=== PATIENT | female | born 2000 | race Caucasian/White ===

== ENCOUNTER 2024-04-29 09:49 | Emergency (ER) | payer OTHER, SELFPAY ==
[2024-04-29 10:03] VITALS: BP 134/91; PULSE 120; RESP 18; TEMP 36.6; O2SAT 100
[2024-04-29 10:12] LABS: EDSTREPNEGPOS1 Positive (Negative)
--- NOTE | 2024-04-29 10:16 | ED.GENADULT ---
HPI - General Adult General Chief complaint: Upper Respiratory Infection Stated complaint: Strep Symptoms Time Seen by Provider: 04/29/24 10:16 Source: patient, RN notes reviewed and old records reviewed Mode of arrival: ambulatory Limitations: no limitations History of Present Illness HPI narrative: 23 year old female who presents to [facility] with complaints of sore throat since Sunday night with known exposure to strep throat from her sisters. Patient reports no known fevers, chills or sweats, reports painful swallowing and some clogged feeling in her ears. Patient reports no cough or any respiratory congestion. Patient reports that she has been taking some Tylenol and Ibuprofen for her symptoms. MD complaint: sore throat Onset (ago): day(s) (2) Location: mouth (throat) Severity scale (1-10): 4 Treatments prior to arrival: NSAID and other (Tylenol) Related Data Home Medications ?Medication ?Instructions ?Recorded ?Confirmed ?Last Taken ?Type drospirenone 3 mg-ethinyl 1 tablet PO DAILY 04/29/24 04/29/24 Unknown History estradiol 0.03 mg tablet (Zumandimine (28)) pantoprazole 40 mg tablet,delayed 40 mg PO DAILY 04/29/24 04/29/24 Unknown History release Allergies Allergy/AdvReac Type Severity Reaction Status Date / Time No Known Allergies Allergy Verified 04/29/24 10:00 Review of Systems Review of Systems: CONSTITUTIONAL: reports some malaise,no chills, sweats, or fever. EYES: Denies visual changes, redness, or discharge. ENT: Reports rhinorrhea, congestion, sinus pain,positive for otalgia and positive sore throat. CARDIOVASCULAR: Denies chest pain, palpitations, or edema. RESPIRATORY: Reports no cough.? Denies dyspnea. GASTROINTESTINAL: Denies abdominal pain, nausea, vomiting, diarrhea SKIN: Denies rash or itching. MUSCULOSKELETAL: Denies myalgia. NEUROLOGIC: Denies headache. All systems reviewed & are unremarkable except as noted in HPI and below PMFSH Comments At time of signature, agree with nursing past medical, surgical, social and family history. There is no relevant family history pertinent to the presenting complaint Exam Narrative: GENERAL: Well-appearing, well-nourished, and in no acute distress. HEAD: Normocephalic EYES: PERRLA, conjunctivae clear ENT: Nares clear, turbinates edematous and erythematous, clear discharge. Mucous membranes moist. TM pearly mejia with dull light reflex bilaterally; no tragal tenderness. Oropharynx erythematous without lesions. Tonsils not enlarged and without exudate, no drooling, no hoarseness, no trismus, uvula midline. NECK: Supple. No lymphadenopathy CHEST: Clear to auscultation, breath sounds equal. No wheezing, rhonchi, rales, or stridor. No respiratory distress, speaks in full sentences. HEART: Regular rate and rhythm. No murmur heard. SKIN: Warm, dry, no rash. NEURO: Alert and oriented x3. PSYCH: Normal mood and affect Course Course Emergency Course: Patient is aware of diagnosis, understands and agrees to treatment plan.? Anticipatory guidance given.? Patient agrees to follow-up as directed and is aware of reasons to seek care at the emergency department. Portions of this record may have been created with voice recognition software Level of Care: Express Care Visit Vital Signs Vital signs: Vital Signs Temperature 36.6 C 04/29/24 10:03 Pulse Rate 120 H 04/29/24 10:03 Respiratory Rate 18 04/29/24 10:03 Blood Pressure 134/91 H 04/29/24 10:03 Pulse Oximetry 100 04/29/24 10:03 Temperature 36.6 C 04/29/24 10:03 Pulse Rate 120 H 04/29/24 10:03 Respiratory Rate 18 04/29/24 10:03 Blood Pressure 134/91 H 04/29/24 10:03 Pulse Oximetry 100 04/29/24 10:03 Reviewed Medical Decision Making Vital Signs Vital Signs: Vital Signs Temperature 36.6 C 04/29/24 10:03 Pulse Rate 120 H 04/29/24 10:03 Respiratory Rate 18 04/29/24 10:03 Blood Pressure 134/91 H 04/29/24 10:03 Pulse Oximetry 100 04/29/24 10:03 Temperature 36.6 C 04/29/24 10:03 Pulse Rate 120 H 04/29/24 10:03 Respiratory Rate 18 04/29/24 10:03 Blood Pressure 134/91 H 04/29/24 10:03 Pulse Oximetry 100 04/29/24 10:03 reviewed Lab Data Lab results reviewed: Yes I reviewed the patient's lab results. Lab results narrative: strep screen positive Labs: Lab Results 04/29/24 Range/Units 10:12 POC Grp A Strep Screen Positive (Negative) reviewed Critical Care Time Critical Care Time Critical Care Time: No Discharge Plan Discharge Clinical Impression: Strep pharyngitis Patient Disposition: Home, Self-Care Condition: Stable Instructions: Antibiotic Form, Strep Throat (ED) Additional Instructions: You tested positive for Group A strep . Take the entire course of antibiotics. Throw away your current toothbrush and begin using a new toothbrush in 48 hours in order to prevent re-infection. Sanitize all reusable water bottles . Do not share items with others. Salt water gargles may alleviate some of the throat discomfort. You can take Tylenol or ibuprofen per the package instructions for pain/fever. Claritin Zyrtec or Larisa daily for any sinus congestion or drainage you must be on oral antibiotics for 24 hours before you return to school or work If your symptoms persist, change or worsen significantly before you can contact your personal physician then please, without delay, go to the emergency department for further evaluation. Follow-up with PCP in 7-10 days or sooner if needed Follow up with PCP soon in regards to your blood pressure which is elevated above threshold for referral. Blood pressure above 120/80 may indicate pre-hypertension. 134/91 Patient Language: Danish Prescriptions: New amoxicillin 500 mg capsule 500 mg PO Q8H Qty: 21 0RF No Action drospirenone-ethinyl estradiol [Zumandimine (28)] 3-0.03 mg tablet 1 tablet PO DAILY pantoprazole 40 mg tablet,delayed release (DR/EC) 40 mg PO DAILY Follow-up/Referrals: PHYSICIAN,[facility] SPECIALIST [Primary Care Provider] - Time of Disposition: 10:25 Quality [place] Coma Scale Eyes: Open Verbal: Oriented and Alert Motor: Follows Commands [place] Com[place] Total Score: 15
== END 2024-04-29 10:26 | disposition home or self-care (01) ==
PROVIDERS: Emergency Provider Registered Nurse
DX: J02.0 Streptococcal pharyngitis (principal)
CPT/HCPCS: 87880; 99203; G0463